=== PATIENT | male | born 1965 | race Hispanic/Latino ===

== ENCOUNTER 2019-08-03 02:14 | Emergency (ER) | payer SELFPAY ==
[2019-08-03 04:37] LABS: #Basophils 0.1 thou/uL (0.0-0.2); #Eosinphils 0.1 thou/uL (0.0-0.7); #Lymphocytes 1.3 thou/uL (1.20-3.40); #Monocytes 0.5 thou/uL (0.11-0.59); #Neutrophils 4.5 thou/uL (1.40-6.50); %Eosinophils 1.7 % (0.0-10.0); %Lymphocytes 20.4 % (21.0-51.0); %Neutrophils 69.9 % (42.0-75.0); Hemoglobin 15.6 g/dL (14.0-18.0); Mean Corpuscular HGB CONC 34.6 g/dL (32.0-36.0); Mean Corpuscular Volume 92.5 fL (78.0-98.0); Mean Platelet Volume 7.4 fL (7.4-10.4); Platelet Count 252 thou/uL (130-400); RBC Distribution Width 11.3 % (11.5-14.5); Red Blood Cell (RBC) Count 4.88 mill/uL (4.70-6.10); White Blood Cell (WBC) Count 6.5 thou/uL (4.8-10.8)
[2019-08-03 05:04] LABS: ALT (SGPT) 31 U/L (8-55); AST (SGOT) 31 U/L (5-34); Albumin 4.5 g/dL (3.5-5.0); Alkaline Phosphatase 101 U/L (40-110); Anion Gap 15 mmol/L (10-20); BUN (Urea Nitrogen) 8 mg/dL (8.4-25.7); Bilirubin, Total 0.3 mg/dL (0.2-1.2); Calc. Creatinine Clearance 0 mL/min (70-130); Calcium 9.3 mg/dL (7.8-10.44); Carbon Dioxide 21 mmol/L (22-29); Chloride 105 mmol/L (98-107); Estimated GFR-MDRD Greater than 90; Globulin 3.5 g/dL (2.4-3.5); Glucose 105 mg/dL (70-105); Potassium 4.3 mmol/L (3.5-5.1); Sodium 137 mmol/L (136-145)
[2019-08-03 05:06] LABS: Acetaminophen Less than 6.0 mcg/mL (10.0-30.0); Alcohol 178 mg/dL (Less than 10); Salicylate Less than 8.0 mg/dL (15.0-30.0)
[2019-08-03 05:22] LABS: Amphetamine Not Detected (NotDetected); Barbiturates Screen Not Detected (NotDetected); Benzodiazepine Screen Not Detected (NotDetected); Cocaine Metabolite Screen Not Detected (NotDetected); Medtox Control Line Valid? VALID (VALID); Medtox Reader # READER 4; Methadone Not Detected (NotDetected); Methamphetamine Not Detected (NotDetected); Opiate Screen Not Detected (NotDetected); Oxycodone Screen Not Detected (NotDetected); Phencyclidine (PCP) Not Detected (NotDetected); THC/Cannabinoid Screen Not Detected (NotDetected); Tricyclic Screen Not Detected (NotDetected)
--- NOTE | 2019-08-03 08:39 | CT ---
PRELIMINARY REPORT/[facility]/AFTER HOURS PROCEDURE CT HEAD WITHOUT INTRAVENOUS CONTRAST: CLINICAL HISTORY: ER 8. AMS/left arm numbness. AOX4. Left hand pain and tingling since Sunday. Anxiety. ETOH. TECHNIQUE: Axial computed tomography images of the head/brain without intravenous contrast. COMPARISON: None provided. FINDINGS: BRAIN: No acute intraparenchymal hemorrhage. No mass lesion. No CT evidence for acute territorial inf arct. No midline shift or extra-axial collection. VENTRICLES: No hydrocephalus. ORBITS: The orbits are unremarkable. SINUSES AND MASTOIDS: Right maxillary sinus mucosal thickening. SOFT TISSUES: No significant facial or scalp soft tissue swelling evident. No radiopaque foreign body is seen. BONES: No acute skull fracture. IMPRESSION: 1. No acute intracranial abnormality. 2. Chronic appearing right maxillary sinus disease. ELECTRONICALLY SIGNED BY: Lawrence Garcia M.D. Aug 03, 2019 4:24:02 AM HAIR [employer]TER This report is intended for review by the ordering physician only, in accordance of law. If you recei ve this report in error, please call [facility] at [phone]. FINAL REPORT EMERGENT AFTER HOURS CT BRAIN WITHOUT IV CONTRAST: 08/03/2019 4:04 a.m. Sinus mucosal disease, more so on the right side. No mass, bleed or other acute process. This report is in agreement with the preliminary report. CODE QA POS: [facility]
--- NOTE | 2019-08-03 11:52 | RAD ---
CHEST TWO VIEWS: HISTORY: Chest pain. FINDINGS: Heart size is within normal limits. The lungs are clear. No confluent pneumonia, overt edema or pleur al effusion. IMPRESSION: No significant acute intrathoracic disease. POS: [facility]
--- NOTE | 2019-08-03 12:07 | RAD ---
LEFT WRIST 3 VIEWS: Date: 08/03/2019 HISTORY: Injury from trauma, pain. FINDINGS: There is minimal abnormal widening of the scapholunate space raising concern for some scapholunate li gament injury and dissociation. No evidence for acute fracture. IMPRESSION: Widening of the scapholunate space concerning for some scapholunate dissociation. Nonemergent follow- up imaging including MRI or wrist arthrogram might be a consideration. CODE T. POS: [facility]
--- NOTE | 2019-08-03 12:35 | RAD ---
LEFT HAND 2 VIEWS: Date: 08/03/2019 HISTORY: Left hand pain, anxiety. FINDINGS: No fracture, dislocation, or other significant acute osseous abnormality. IMPRESSION: Unremarkable left hand. If the patient has persistent or worsening unexplained hand pain, short-term follow-up study in 1-2 w eeks suggested. POS: [facility]
== END 2019-08-03 11:50 | disposition home or self-care (01) ==
LOC: ERS 02:14
DX: G62.9 Polyneuropathy, unspecified (principal); F10.10 Alcohol abuse, uncomplicated; F17.290 Nicotine dependence, other tobacco product, uncomplicated; Y90.6 Blood alcohol level of 120-199 mg/100 ml
CPT/HCPCS: 36415; 70450; 71046; 80053; 80306; 80307; 84443; 84484; 85025; 93005; 96360; 96361

== ENCOUNTER 2020-10-05 14:15 | Outpatient (CLI) | payer OTHER | END 2020-10-05 14:16 | disposition home or self-care (01) | LOC: BICRAD 14:15 | DX: S67.92XA Crushing injury of unspecified part(s) of left wrist, hand and fingers, initial encounter (principal) ==